=== PATIENT | female | born 1945 | race Caucasian/White ===

== ENCOUNTER 2017-04-16 20:19 | Emergency (ER) ==
[~2017-04-16] VITALS: Ht 165.1 cm; Wt 55.0 kg
[2017-04-16 20:20] VITALS: BP 148/75
== END 2017-04-16 20:59 | disposition home or self-care (01) ==
LOC: ER 20:20
DX: J44.9 Chronic obstructive pulmonary disease, unspecified (principal); R07.9 Chest pain, unspecified; Z87.891 Personal history of nicotine dependence
CPT/HCPCS: 71045